=== PATIENT | female | born 1985 ===

== ENCOUNTER 2017-03-11 22:13 | Emergency (ER) | payer OTHER ==
--- NOTE | 2017-03-11 22:39 | ED HEADACHE COMPLAINT ---
History of Present Illness General Chief Complaint: Headache Stated Complaint: HEADACHE Source: patient Exam Limitations: no limitations Vital Signs & Intake/Output Vital Signs & Intake/Output Vital Signs Date Time Temp Pulse Resp B/P B/P Pulse O2 O2 Flow FiO2 Mean Ox Delivery Rate 03/12 0020 98.3 80 20 120/81 100 Room Air 03/11 2252 Room Air 03/11 2217 98.1 81 20 122/82 98 Allergies Coded Allergies: No Known Allergies (03/11/17) Reconcile Medications Butalb/Acetaminophen/Caffeine (Zebutal 50-325-40 MG Capsule) 50 MG-325 MG-40 MG CAPSULE 1 TAB PO TID PRN MIGRAINE Ketorolac Tromethamine 10 MG TABLET 1 TAB PO TID PRN PAIN RECEIVED IM IN ER Ondansetron HCl (Zofran) 4 MG TABLET 1 TAB PO Q6-8P PRN NAUSEA Triage Note: PER PT HX OF MIGRAINES X 3 YRS USES TOPAMAX WITH EFFECT, BUT DID NOT WORK TODAY. MIGRAINE SINCE 12 NOON Triage Nurses Notes Reviewed? yes Onset: Gradual Duration: constant Timing: recent history Quality/Severity: pressure, sharp, stabbing Severity Numbers: 8 Head Injury Location: temporal : No Patient currently breastfeeds: No HPI: Patient is a 31-year-old female with past medical history of chronic migraines who states that for the past 10 hours she's been complaining of a gradual onset of persistent bilateral temporal squeezing pressure-like headache where she's had multiple episodes 3 of nonbloody nonbilious emesis and cannot not tolerating by mouth. Patient tried Topamax which she takes regularly and Excedrin Migraine medications with no relief of symptoms. Patient has associated symptoms of photophobia sensitivity light and sound nausea. Denies any acute onset or thunderclap headache or worst headache of life. Denies any neck pain back pain fever chills abdominal pain (JANICE WHITE) Past History Travel History Traveled to [place] past 21 day No Medical History Any Pertinent Medical History? see below for history Neurological: MIGRAINES EENT: NONE Cardiovascular: NONE Respiratory: NONE Gastrointestinal: NONE Hepatic: NONE Renal: NONE Musculoskeletal: NONE Psychiatric: NONE Endocrine: NONE Surgical History Surgical History: non-contributory Psychosocial History Tobacco Use: Never used Family History Hx Contributory? No (JANICE WHITE) Review of Systems Review of Systems Constitutional: Reports: no symptoms. Eyes: Reports: see HPI. Ears, Nose, Throat, Mouth: Reports: see HPI. Respiratory: Reports: no symptoms. Cardiovascular: Reports: no symptoms. Gastrointestinal/Abdominal: Reports: see HPI. Denies: abdominal pain. Genitourinary: Reports: no symptoms. Musculoskeletal: Reports: no symptoms. Skin: Reports: no symptoms. Neurological/Psychological: Reports: no symptoms. Hematologic/Endocrine: Reports: no symptoms. Endocrine: Reports: no symptoms. Immunologic/Allergic: Reports: no symptoms. All Other Systems: Reviewed and Negative (JANICE WHITE) Physical Exam Physical Exam General Appearance: mild distress Cranial Nerves: normal hearing, normal speech, PERRL Comments: Well-developed well-nourished person in no acute distress HEENT: Normal EENT exam, extraocular motion intact, no nystagmus. Pupils equally round and reactive to light and accommodation. Nose is atraumatic. External auditory canal and Tympanic membranes clear. Pharynx normal. No swelling or edema. Neck: Supple, no lymphadenopathy, normal range of motion without pain or tenderness Back: Nontender, no CVA tenderness. Cardiovascular: Regular rate and rhythms no murmurs rubs or gallops, normal JVP Respiratory: Chest nontender. No respiratory distress.breath sounds clear to auscultation bilaterally Abdomen: Soft, nontender nondistended, no appreciable organomegaly. Normal bowel sounds. No ascites Extremity: No edema, no calf tenderness to palpation, normal and equal pulses. Neuro: Alert oriented x3, motor sensory normal, cranial nerves II through XII grossly intact. Skin: No appreciable rash on exposed skin, skin is warm and dry. Psych: Mood and affect is normal, memory and judgment is normal. Core Measures Severe Sepsis Present: No Septic Shock Present: No (JANICE WHITE) Progress Differential Diagnosis: carotid dissection, cav sinus thromb, cluster CALERO, encephalitis, IC mass/tumor, intracranial Hem., meningitis, migraine CALERO, musculoskeletal pain, sinusitis, SSS thrombosis, subarach. Hem., tension CALERO, temporal arteritis, TMJ syndrome, viral cephalgia Plan of Care: Current Medications Sig/Nay Start time Last Medication Dose Stop Time Status Admin Sodium Chloride 1,000 ML BOLUS ONE 03/11 4441 AC 03/11 (Normal Saline 0.9%) 03/12 0014 [id number]- reevaluation the patient, patient states she feels significantly improved. Patient was able tolerate by mouth. I shortly advised patient to follow up with disposition plan dictated from instructions and she will comply. No concerns at this time of meningitis or subarachnoid hemorrhage. (JANICE WHITE) Departure Departure Disposition: HOME OR SELF CARE Condition: Stable Clinical Impression Primary Impression: Migraine Referrals: [facility],ARMIDA Jain (PCP/Family) Additional Instructions: As discussed on Monday follow-up with their established neurologist, begin the prescription of ketorolac for headaches in the prescription of ZEBUTAL for breakthrough headache relief and begin the prescription of Zofran for nausea. If symptoms worsen or if YOU develop any new concerning symptom return to emergency room. Prescriptions are waiting at [facility] Departure Forms: Customer Survey General Discharge Information Prescriptions: Current Visit Scripts Ketorolac Tromethamine 1 TAB PO TID PRN PAIN #15 TAB RECEIVED IM IN ER Butalb/Acetaminophen/Caffeine (Zebutal 50-325-40 MG Capsule) 1 TAB PO TID PRN MIGRAINE #12 TAB Ondansetron HCl (Zofran) 1 TAB PO Q6-8P PRN NAUSEA #12 TAB (JANICE WHITE) PA/[employer] Co-Sign Statement Statement: ED Attending supervision documentation- [] I saw and evaluated the patient. I have also reviewed all the pertinent lab results and diagnostic results. I agree with the findings and the plan of care as documented in the PA's/[employer]'s documentation. [X] I have reviewed the ED Record and agree with the PA's/[employer]'s documentation. [] Additions or exceptions (if any) to the PAs/[employer]'s note and plan are summarized below: [] (JAS CRUZ DO
[2017-03-11] MEDS ORDERED: ZOFRAN4 M2 PO (23:42)
[2017-03-11] MEDS ORDERED: ZEBUTAL 50-3251 EACH PO (23:42)
[2017-03-11] MEDS ORDERED: KETOROLAC TROME10 M1 PO (23:42)
[2017-03-12 00:20] VITALS: BP 120/81
== END 2017-03-12 00:21 ==
LOC: ERH 22:13
DX: G43.909 Migraine, unspecified, not intractable, without status migrainosus (principal)
CPT/HCPCS: 96361; 96374; 96375; J1200; J1885; J2405